=== PATIENT | female | born 1935 | race Caucasian/White ===

== ENCOUNTER 2016-11-06 12:57 | Inpatient (IN) ==
--- NOTE | 2016-11-06 14:31 | Internal Med History&Physical ---
Date of Encounter: 11/06/16 Time of Encounter: 14:29 Assessment and Plan (1) Closed right hip fracture Current visit: No Status: Acute Patient is here for rehabilitation after a mechanical fall with right hip fracture ORIF Qualifiers: Encounter type: initial encounter Qualified Code(s): S72.001A - Fracture of unspecified part of neck of right femur, initial encounter for closed fracture (2) Diabetes mellitus Current visit: No Status: Acute We will follow blood sugars. Qualifiers: Diabetes mellitus type: type 2 Diabetes mellitus complication status: without complication Diabetes mellitus [facility] insulin use: without petroleum terminal plant operator use Qualified Code(s): E11.9 - Type 2 diabetes mellitus without complications Internal Medicine - H&P: HPI Chief complaint: s/p orif hip fx Admitted From: Hospital to Hospital Transfer Plans for Post Hospital Care: Home History of present illness: Ms. Banda is a 81 year old female Past Med Surg Social Fam HX - Past Medical History Medical history: atrial fibrillation, diabetes Psychiatric history: no psych history - Past Surgical History Surgical History: pacemaker - Social History Smoking Status: Smoker, status unknown Smokeless Tobacco Status: No Alcohol use: none Drug use: none Internal Medicine - H&P: Meds Alendronate Sodium [Fosamax] 70 mg PO QWEEK 10/31/16 [History] Amitriptyline [Elavil] 25 mg PO DAILY 10/31/16 [History] Ca/D3/Mag#11/Zinc/Bingo Caller/Manish/Bor [Caltrate 600+D Plus Tablet] 1 each PO BID [History] Furosemide [Lasix] 40 mg PO BID 10/31/16 [History] Gemfibrozil [Lopid] 600 mg PO BID 10/31/16 [History] GlipiZIDE [Glucotrol Xl] 2.5 mg PO DAILY 10/31/16 [History] Metoprolol XL (24 HR) Succ [Toprol Xl] 50 mg PO BID 10/31/16 [History] Potassium Citrate [Urocit-K] 5 meq PO DAILY 10/31/16 [History] Simvastatin [Zocor] 20 mg PO DAILY 10/31/16 [History] Warfarin [Coumadin] 2 mg PO DAILY 10/31/16 [History] Docusate [Colace] 100 mg PO DAILY #30 capsule 01/16/17 [Rx] Allergies No Known Allergies Allergy (Verified 10/31/16 12:26) All Systems PM: A 10-system review of systems was performed and is negative for pertinent findings except as documented above in the HPI. - Head Head exam: Present: atraumatic, normal inspection, normocephalic - Neck Neck exam general surgery: Present: supple, trachea midline. Absent: lymphadenopathy - Respiratory Respiratory exam: Present: CTAB. Absent: accessory muscle use, rales, rhonchi, wheezes - Cardiovascular Cardiovascular exam: Present: RRR, +S1, +S2. Absent: diastolic murmur, gallop, rubs, systolic murmur - GI/Abdominal GI/Abdominal exam: Present: normal bowel sounds, soft, no peritoneal signs. Absent: distended, tenderness Additional comments: Patient has a new scar from a pacemaker insertion. This was a redo of her original pacemaker Internal Med - H&P Results - Labs Labs: Lab results are pending
[2016-11-06] MEDS: (Alendronate Sodium [Fosamax] 70 MG) PO SCH (15:26)
[2016-11-06] MEDS ORDERED: *HR* Warfarin 2 MG TABLET PO SCH (18:00)
[2016-11-06] MEDS: *HR* Warfarin 3 MG TABLET PO SCH (18:55)
[2016-11-06] MEDS: (Ca/D3/Mag#11/Zinc/Cop/Mang/Bor [Caltrate 600+D Plus PO SCH (20:39)
[2016-11-06] MEDS: Furosemide 40 MG TABLET PO SCH (20:39)
[2016-11-06] MEDS: Metoprolol XL (24 HR) Succ 50 MG TAB.ER.24H PO SCH (20:40)
[2016-11-06] MEDS: Ibuprofen 800 MG TABLET PO PRN (20:40)
[2016-11-07] MEDS: *HR* OxyCODONE Immed Rel 5 MG TABLET PO PRN ×2 (01:45→20:56)
[2016-11-07 05:58] LABS: Basophils % 0.7 %; Eosinophils # 0.1 K/mcL (0.0-0.6); Hematocrit 25.7 % (35.3-44.9); Hemoglobin 8.7 g/dL (11.5-15.4); Immature Granulocytes % 2.9 % (0-4); Lymphocytes % 16.5 %; Mean Corpuscular HGB Conc 33.9 g/dL (31.6-35.5); Mean Corpuscular Volume 88.6 fL (83.0-100.0); Mean Platelet Volume 8.9 fL (9.4-12.4); Monocytes # 0.6 K/mcL (0.0-1.3); Nucleated Red Blood Cells 0.5 /100 WBC (0); Platelet Count 263 K/mcL (140-400); Red Cell Distribution Width 14.6 % (11.5-14.5); Segmented Neutrophils % 67.9 %
[2016-11-07 05:59] LABS: INR 2.3
[2016-11-07 06:02] LABS: Activated Partial Thrombo Time 42.8 Seconds (26.0-36.0)
[2016-11-07 06:08] LABS: BUN/Creatinine Ratio 53 (6-26); Blood Urea Nitrogen 43 mg/dL (7-20); Carbon Dioxide 25 mEq/L (19-29); Chloride 97 mEq/L (98-109); Glucose 219 mg/dL (70-99); Osmolality,Calculated 294 (280-300); Potassium 4.3 mEq/L (3.5-4.5); Sodium 133 mEq/L (136-145); eGFR For African Americans > 60 (> 60); eGFR For Non-African Americans > 60 (> 60)
[2016-11-07] MEDS: Ibuprofen 800 MG TABLET PO PRN ×2 (08:52→17:57)
[2016-11-07] MEDS: Furosemide 40 MG TABLET PO SCH ×2 (08:53→20:52)
[2016-11-07] MEDS: Metoprolol XL (24 HR) Succ 50 MG TAB.ER.24H PO SCH ×2 (08:53→20:52)
[2016-11-07] MEDS: (Ca/D3/Mag#11/Zinc/Cop/Mang/Bor [Caltrate 600+D Plus PO SCH ×2 (08:53→21:00)
[2016-11-07] MEDS: POTASSIUM CITRATE 5 MEQ PO SCH (08:54)
[2016-11-07] MEDS ORDERED: *HR* Warfarin 2 MG TABLET PO SCH (09:00)
[2016-11-07] MEDS ORDERED: *HR* GlipiZIDE XL (24 HR) 2.5 MG TABLET PO SCH (09:00)
[2016-11-07] MEDS ORDERED: Dextrose Gel 15 GM PO PRN ×2 (11:52)
[2016-11-07] MEDS ORDERED: D5% in Water 1,000 ML IV PRN (11:52)
[2016-11-07] MEDS ORDERED: *HR* Dextrose 50 % in Water (Syg) 50 ML SYRINGE IVP PRN (11:52)
--- NOTE | 2016-11-07 13:49 | Internal Med Progress Note ---
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 Urbina color is good and she is tolerating everything well and is doing very well. She is a little weak and complains of easy fatigue - Constitutional Vitals: Temp Pulse Resp BP Pulse Ox 97.1 F L 75 18 136/76 96 11/07/16 06:59 11/07/16 06:59 11/07/16 06:59 11/07/16 06:59 11/07/16 06:59 - Head Head exam: Present: atraumatic, normal inspection, normocephalic - Neck Neck exam general surgery: Present: supple, trachea midline. Absent: lymphadenopathy - Respiratory Respiratory exam: Present: CTAB. Absent: accessory muscle use, rales, rhonchi, wheezes - Cardiovascular Cardiovascular exam: Present: RRR, +S1, +S2. Absent: diastolic murmur, gallop, rubs, systolic murmur - GI/Abdominal GI/Abdominal exam: Present: normal bowel sounds, soft, no peritoneal signs. Absent: distended, tenderness Internal Medicine: Result - Labs CBC & Chem 7: 11/07/16 05:50 11/07/16 05:50 Labs: Short CBC 11/07/16 Range/Units 05:50 WBC 5.9 (4.3-11.1) K/mcL Hgb 8.7 L (11.5-15.4) g/dL Hct 25.7 L (35.3-44.9) % Plt Count 263 (140-400) K/mcL Neutrophils # 4.0 (1.6-8.9) K/mcL BMP 11/07/16 05:50 Sodium 133 L Potassium 4.3 Chloride 97 L Carbon Dioxide 25 BUN 43 H Creatinine 0.81 Glucose 219 H Calcium 9.0 Labs look stable - ABG Interpretation ABG results: PT/INR, D-dimer PT 25.0 Seconds (9.4-12.1) H 11/07/16 05:50 - Impressions Impressions Hip X-Ray 11/07/16 08:47 IMPRESSION: Status post ORIF of the intertrochanteric right hip. No evidence of hardware complication. D/ / Carmelo Garduno MD / Carmelo Garduno MD Interpreting Provider: Carmelo Garduno MD Consult Discharge Plan - Plan Instructions: Pacemaker (DC), Open Reduction and Internal Fixation of a Hip Fracture (DC), Diabetes Mellitus Type 2 in Adults (DC) Referrals: Jasmin Renee PAC [Physician Volumetric Weigher] - 11/10/16 10:45 am (Another appt on 11-15-16 at 1130 ) Kevin Terrazas Jr, MD [Primary Care Provider] - 11/15/16 9:45 am
[2016-11-07] MEDS: *HR* Warfarin 3 MG TABLET PO SCH (17:55)
[2016-11-07] MEDS: Insulin LISPRO 300 UNITS/3 ML VIAL SQ SCH (17:55)
[2016-11-07] MEDS ORDERED: Insulin LISPRO 300 UNITS/3 ML VIAL SQ SCH (21:00)
[2016-11-08 05:21] LABS: Prothrombin Time 33.7 Seconds (9.4-12.1)
[2016-11-08] MEDS: Insulin LISPRO 300 UNITS/3 ML VIAL SQ SCH ×4 (09:54→21:03)
[2016-11-08] MEDS: Ibuprofen 800 MG TABLET PO PRN ×2 (11:35→21:08)
[2016-11-08] MEDS: Metoprolol XL (24 HR) Succ 50 MG TAB.ER.24H PO SCH ×2 (11:35→21:03)
[2016-11-08] MEDS: Furosemide 40 MG TABLET PO SCH ×2 (11:35→21:02)
[2016-11-08] MEDS: (Ca/D3/Mag#11/Zinc/Cop/Mang/Bor [Caltrate 600+D Plus PO SCH ×2 (11:36→21:17)
[2016-11-08] MEDS: *HR* GlipiZIDE XL (24 HR) 2.5 MG TABLET PO SCH (11:36)
[2016-11-08] MEDS: POTASSIUM CITRATE 5 MEQ PO SCH (11:36)
--- NOTE | 2016-11-08 14:03 | Physical Med Progress Note ---
Date of Encounter: 11/08/16 Time of Encounter: 13:49 Physical Medicine-PN: Subj Interval history: PM&R PCC Note Patient admitted s/p right hip fracture. Patient is suffering from anxiety. TR has been working on relaxation techniques. Plan to give patient a small amount of ativan at hs. Her pain is well controlled with tylenol and ibuprofen. Patient ambulates with CGA, needs cues to maintain PWB status. She is CGA/Elaine for mat transfers. She is able to ambulate to therapy from her room. Patient is having issues with new learning-she has some pre-existing dementia. Patient has 1 step to enter home-will work on steps prior to discharge. Plan for discharge to home 11/14/16. - Constitutional Vitals: Vital Signs Temp Pulse Resp BP Pulse Ox 11/08/16 07:28 98.1 F 89 16 144/55 99 11/07/16 19:15 97.9 F 85 16 138/61 100 Intake and Output 11/07/16 11/08/16 11/08/16 23:59 07:59 15:59 Intake Total 400 / 400 360 / 360 Balance 400 / 400 360 / 360 Intake: Oral 400 / 400 360 / 360 Other: Meal Lunch Percent of Meal Consumed 55% Stool Size Small Small Stool Consistency soft formed Stool Characteristics Normal for Patient Stool Color Brown Brown # Voids 1 1 # Bowel Movements 1 1 # Bowel Movement Diapers 1 Blood Glucose* 197 263 Physical Medicine-PN: Obj Data - Labs CBC & Chem 7: 11/07/16 05:50 11/07/16 05:50 Labs: Laboratory Results - last 24 hr 11/07/16 11/07/16 11/07/16 17:00 18:49 20:34 PT INR POC Glucose 354 H 360 H 197 H 11/08/16 11/08/16 11/08/16 05:10 07:26 11:36 PT 33.7 H INR 3.0 POC Glucose 141 H 263 H - ABG Interpretation ABG results: PT/INR, D-dimer PT 33.7 Seconds (9.4-12.1) H 11/08/16 05:10 Consult Discharge Plan - Plan Instructions: Pacemaker (DC), Open Reduction and Internal Fixation of a Hip Fracture (DC), Diabetes Mellitus Type 2 in Adults (DC) Referrals: Jasmin Renee, PAC [Physician Nail Kegger] - 11/10/16 10:45 am (Another appt on 11-15-16 at 1130 ) Kevin Terrazas Jr, MD [Primary Care Provider] - 11/15/16 9:45 am
[2016-11-08] MEDS ORDERED: Bumetanide 1 MG TABLET PO ONE (14:29)
--- NOTE | 2016-11-08 14:42 | Internal Med Progress Note ---
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 hWite's color is good and she is tolerating everything well and is doing very well. She is a little weak and complains of easy fatigue. 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 He gets very anxious and has panic attacks strange environments. Her rock so is her 's long sees around she stays calm. I have added a little teeny bit of Ativan at at bedtime to see if she will rest at any time during the day that she gets panic attack. - Constitutional Vitals: Temp Pulse Resp BP Pulse Ox 98.1 F 89 16 144/55 99 11/08/16 07:28 11/08/16 07:28 11/08/16 07:28 11/08/16 07:28 11/08/16 07:28 - Head Head exam: Present: atraumatic, normal inspection, normocephalic - Neck Neck exam general surgery: Present: supple, trachea midline. Absent: lymphadenopathy - Respiratory Respiratory exam: Present: CTAB. Absent: accessory muscle use, rales, rhonchi, wheezes - Cardiovascular Cardiovascular exam: Present: RRR, +S1, +S2. Absent: diastolic murmur, gallop, rubs, systolic murmur - Expanded Lower Extremities Exam Lower Leg exam: Present: swelling (Patient has 2-3 mm pretibial edema so I am adding some Bumex to her Lasix.) Internal Medicine: Result - Labs CBC & Chem 7: 11/07/16 05:50 11/07/16 05:50 - ABG Interpretation ABG results: PT/INR, D-dimer PT 33.7 Seconds (9.4-12.1) H 11/08/16 05:10 Consult Discharge Plan - Plan Instructions: Pacemaker (DC), Open Reduction and Internal Fixation of a Hip Fracture (DC), Diabetes Mellitus Type 2 in Adults (DC) Referrals: Jasmin Renee PAC [Physician Pie Baker] - 11/10/16 10:45 am (Another appt on 11-15-16 at 1130 ) Kevin Terrazas Jr, MD [Primary Care Provider] - 11/15/16 9:45 am
[2016-11-08] MEDS ORDERED: *HR* LORazepam 0.5 MG TABLET PO PRN (14:47)
[2016-11-08] MEDS ORDERED: *HR* LORazepam 0.5 MG TABLET PO SCH (15:00)
[2016-11-08] MEDS: *HR* Warfarin 2 MG TABLET PO SCH (17:54)
[2016-11-08] MEDS: *HR* OxyCODONE Immed Rel 5 MG TABLET PO PRN ×2 (17:54→23:40)
[2016-11-08] MEDS: *HR* LORazepam 0.5 MG TABLET PO SCH (21:01)
[2016-11-09 05:38] LABS: INR 2.3; Prothrombin Time 25.8 Seconds (9.4-12.1)
[2016-11-09] MEDS: *HR* GlipiZIDE XL (24 HR) 2.5 MG TABLET PO SCH (09:09)
[2016-11-09] MEDS: POTASSIUM CITRATE 5 MEQ PO SCH (09:09)
[2016-11-09] MEDS: Furosemide 40 MG TABLET PO SCH ×2 (09:09→21:37)
[2016-11-09] MEDS: Metoprolol XL (24 HR) Succ 50 MG TAB.ER.24H PO SCH ×2 (09:09→21:38)
[2016-11-09] MEDS: (Ca/D3/Mag#11/Zinc/Cop/Mang/Bor [Caltrate 600+D Plus PO SCH ×2 (09:10→21:38)
[2016-11-09] MEDS: Insulin LISPRO 300 UNITS/3 ML VIAL SQ SCH ×4 (09:11→21:40)
[2016-11-09] MEDS: Ibuprofen 800 MG TABLET PO PRN ×3 (09:18→21:40)
--- NOTE | 2016-11-09 13:23 | Internal Med Progress Note ---
Date of Encounter: 11/09/16 Time of Encounter: 13:21 - Assessment and plan (1) Closed right hip fracture Current Visit: Yes Status: Acute Assessment and plan: Patient's working with PT OT and TR. Her elevating her legs between sessions. Qualifiers: Encounter type: initial encounter Qualified Code(s): S72.001A - Fracture of unspecified part of neck of right femur, initial encounter for closed fracture (2) Diabetes mellitus Current Visit: No Status: Acute Assessment and plan: Blood sugar still little high yesterday and made adjustments in her medication. 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 White's color is good and she is tolerating everything well and is doing very well. She is a little weak and complains of easy fatigue. 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 He gets very anxious and has panic attacks strange environments. Her rock so is her 's long sees around she stays calm. I have added a little teeny bit of Ativan at at bedtime to see if she will rest at any time during the day that she gets panic attack.lower ext edema, will add bumex. - Constitutional Vitals: Temp Pulse Resp BP Pulse Ox 98.6 F 84 18 127/54 97 11/09/16 07:51 11/09/16 07:51 11/09/16 07:51 11/09/16 07:51 11/09/16 07:51 - Head Head exam: Present: atraumatic, normal inspection, normocephalic - Respiratory Respiratory exam: Present: CTAB. Absent: accessory muscle use, rales, rhonchi, wheezes - Cardiovascular Cardiovascular exam: Present: RRR, +S1, +S2. Absent: diastolic murmur, gallop, rubs, systolic murmur - GI/Abdominal GI/Abdominal exam: Present: normal bowel sounds, soft, no peritoneal signs. Absent: distended, tenderness Internal Medicine: Result - Labs CBC & Chem 7: 11/07/16 05:50 11/07/16 05:50 Labs: Will follow BUN and creatinine - ABG Interpretation ABG results: PT/INR, D-dimer PT 25.8 Seconds (9.4-12.1) H 11/09/16 05:05 Consult Discharge Plan - Plan Instructions: Pacemaker (DC), Open Reduction and Internal Fixation of a Hip Fracture (DC), Diabetes Mellitus Type 2 in Adults (DC) Referrals: Jasmin Renee PAC [Physician Leather Coater] - 11/10/16 10:45 am (Another appt on 11-15-16 at 1130 ) Kevin Terrazas Jr, MD [Primary Care Provider] - 11/15/16 9:45 am
[2016-11-09] MEDS: Bumetanide 1 MG TABLET PO SCH ×2 (15:29→18:12)
[2016-11-09] MEDS ORDERED: Bumetanide 1 MG TABLET PO SCH (17:00)
[2016-11-09] MEDS: *HR* Warfarin 2 MG TABLET PO SCH (18:45)
[2016-11-09] MEDS: *HR* LORazepam 0.5 MG TABLET PO SCH (21:37)
[2016-11-10 05:48] LABS: Prothrombin Time 22.2 Seconds (9.4-12.1)
[2016-11-10] MEDS: Ibuprofen 800 MG TABLET PO PRN ×3 (05:54→20:30)
[2016-11-10] MEDS: POTASSIUM CITRATE 5 MEQ PO SCH (08:51)
[2016-11-10] MEDS: Metoprolol XL (24 HR) Succ 50 MG TAB.ER.24H PO SCH ×2 (08:51→20:29)
[2016-11-10] MEDS: Furosemide 40 MG TABLET PO SCH ×2 (08:51→20:27)
[2016-11-10] MEDS: Bumetanide 1 MG TABLET PO SCH ×2 (08:51→17:12)
[2016-11-10] MEDS: *HR* GlipiZIDE XL (24 HR) 2.5 MG TABLET PO SCH (08:51)
[2016-11-10] MEDS: Insulin LISPRO 300 UNITS/3 ML VIAL SQ SCH ×4 (08:51→20:38)
[2016-11-10] MEDS: (Ca/D3/Mag#11/Zinc/Cop/Mang/Bor [Caltrate 600+D Plus PO SCH ×2 (08:52→20:38)
--- NOTE | 2016-11-10 14:23 | Internal Med Progress Note ---
Date of Encounter: 11/10/16 Time of Encounter: 14:21 - Assessment and plan (1) Closed right hip fracture Current Visit: Yes Status: Acute Assessment and plan: Patient had mechanical fall with hip fracture which was fixed she is now here for rehabilitation. Qualifiers: Encounter type: initial encounter Qualified Code(s): S72.001A - Fracture of unspecified part of neck of right femur, initial encounter for closed fracture (2) Diabetes mellitus Current Visit: No Status: Acute Assessment and plan: Following blood sugars. Some are little hot she is little bit labile. Qualifiers: Diabetes mellitus type: type 2 Diabetes mellitus complication status: without complication Diabetes mellitus halfway insulin use: without halfway use Qualified Code(s): E11.9 - Type 2 diabetes mellitus without complications - Time Spent With Patient less than 15 minutes - Subjective Interval history: Ms. White is settled down to the routine. Working with PT OT and TR. - Constitutional Vitals: Temp Pulse Resp BP Pulse Ox 98.6 F 82 18 137/71 99 11/10/16 07:36 11/10/16 07:36 11/10/16 07:36 11/10/16 07:36 11/10/16 07:36 - Head Head exam: Present: atraumatic, normal inspection, normocephalic - Respiratory Respiratory exam: Present: CTAB. Absent: accessory muscle use, rales, rhonchi, wheezes - Cardiovascular Cardiovascular exam: Present: RRR, +S1, +S2. Absent: diastolic murmur, gallop, rubs, systolic murmur - GI/Abdominal GI/Abdominal exam: Present: normal bowel sounds, soft, no peritoneal signs. Absent: distended, tenderness Internal Medicine: Result - Labs CBC & Chem 7: 11/07/16 05:50 11/07/16 05:50 Labs: Labs look stable - ABG Interpretation ABG results: PT/INR, D-dimer PT 22.2 Seconds (9.4-12.1) H 11/10/16 05:35 Consult Discharge Plan - Plan Instructions: Pacemaker (DC), Open Reduction and Internal Fixation of a Hip Fracture (DC), Diabetes Mellitus Type 2 in Adults (DC) Referrals: Jasmin Renee, PAC [Physician Knot Bumper] - 11/10/16 10:45 am (Another appt on 11-15-16 at 1130 ) Kevin Terrazas Jr, MD [Primary Care Provider] - 11/15/16 9:45 am
[2016-11-10] MEDS: *HR* Warfarin 2.5 MG TABLET PO SCH (17:12)
[2016-11-10] MEDS: *HR* LORazepam 0.5 MG TABLET PO SCH (20:27)
[2016-11-11 06:07] LABS: INR 1.8; Prothrombin Time 20.1 Seconds (9.4-12.1)
[2016-11-11] MEDS: Insulin LISPRO 300 UNITS/3 ML VIAL SQ SCH ×4 (08:22→21:58)
[2016-11-11] MEDS: Bumetanide 1 MG TABLET PO SCH ×2 (08:25→17:26)
[2016-11-11] MEDS: Metoprolol XL (24 HR) Succ 50 MG TAB.ER.24H PO SCH ×2 (08:25→21:36)
[2016-11-11] MEDS: (Ca/D3/Mag#11/Zinc/Cop/Mang/Bor [Caltrate 600+D Plus PO SCH ×2 (08:26→21:38)
[2016-11-11] MEDS: Furosemide 40 MG TABLET PO SCH ×2 (08:26→21:36)
[2016-11-11] MEDS: *HR* GlipiZIDE XL (24 HR) 2.5 MG TABLET PO SCH (08:26)
[2016-11-11] MEDS: Ibuprofen 800 MG TABLET PO PRN ×2 (08:26→17:26)
[2016-11-11] MEDS: POTASSIUM CITRATE 5 MEQ PO SCH (08:28)
[2016-11-11] MEDS: *HR* OxyCODONE Immed Rel 5 MG TABLET PO PRN ×2 (11:30→21:36)
[2016-11-11] MEDS: *HR* Warfarin 2.5 MG TABLET PO SCH (17:27)
[2016-11-11] MEDS: *HR* LORazepam 0.5 MG TABLET PO SCH (21:37)
--- NOTE | 2016-11-11 23:20 | Internal Med Progress Note ---
Date of Encounter: 11/11/16 Time of Encounter: 23:19 - Assessment and plan (1) Closed right hip fracture Current Visit: Yes Status: Acute Assessment and plan: Patient had mechanical fall with hip fracture which was fixed she is now here for rehabilitation PT OT working on improving her balance, transfer and gait.. Qualifiers: Encounter type: initial encounter Qualified Code(s): S72.001A - Fracture of unspecified part of neck of right femur, initial encounter for closed fracture (2) Edema extremities Current Visit: Yes Status: Chronic Assessment and plan: Chronic lower leg edema. Likely dependent plus poor venous circulation - Time Spent With Patient less than 15 minutes - Subjective Interval history: Complains of constipation. Complains of postop pain. No shortness of breath. No chest pain. - Constitutional Vitals: Temp Pulse Resp BP Pulse Ox 97.5 F L 96 19 139/65 93 L 11/11/16 19:00 11/11/16 19:00 11/11/16 19:00 11/11/16 19:00 11/11/16 19:00 General appearance: Present: A&O X 3, pleasant, no acute distress - Respiratory Respiratory exam: Present: CTAB. Absent: accessory muscle use, rales, rhonchi, wheezes - Cardiovascular Cardiovascular exam: Present: RRR, +S1, +S2. Absent: diastolic murmur, gallop, rubs, systolic murmur - GI/Abdominal GI/Abdominal exam: Present: normal bowel sounds, soft, no peritoneal signs. Absent: distended, tenderness - Extremities Exam Extremities exam: Present: pedal edema. Absent: calf tenderness - Neurological Exam Neurological exam: Present: CN II-XII intact, oriented X3, no focal deficits. Absent: pronater drift, facial droop, speech deficit Internal Medicine: Result - Labs CBC & Chem 7: 11/07/16 05:50 11/07/16 05:50 - ABG Interpretation ABG results: PT/INR, D-dimer PT 20.1 Seconds (9.4-12.1) H 11/11/16 05:35 Consult Discharge Plan - Plan Instructions: Pacemaker (DC), Open Reduction and Internal Fixation of a Hip Fracture (DC), Diabetes Mellitus Type 2 in Adults (DC) Referrals: Jasmin Renee, PAC [Physician Marine Surveyor] - 11/10/16 10:45 am (Another appt on 11-15-16 at 1130 ) Kevin Terrazas Jr, MD [Primary Care Provider] - 11/15/16 9:45 am
[2016-11-12 05:32] LABS: INR 1.7; Prothrombin Time 19.1 Seconds (9.4-12.1)
[2016-11-12] MEDS: Insulin LISPRO 300 UNITS/3 ML VIAL SQ SCH ×4 (07:28→21:19)
[2016-11-12] MEDS: POTASSIUM CITRATE 5 MEQ PO SCH (08:34)
[2016-11-12] MEDS: *HR* GlipiZIDE XL (24 HR) 2.5 MG TABLET PO SCH (08:34)
[2016-11-12] MEDS: Bumetanide 1 MG TABLET PO SCH ×2 (08:34→17:33)
[2016-11-12] MEDS: Metoprolol XL (24 HR) Succ 50 MG TAB.ER.24H PO SCH ×2 (08:34→21:19)
[2016-11-12] MEDS: Furosemide 40 MG TABLET PO SCH ×2 (08:34→21:19)
[2016-11-12] MEDS: (Ca/D3/Mag#11/Zinc/Cop/Mang/Bor [Caltrate 600+D Plus PO SCH ×2 (08:35→21:24)
[2016-11-12] MEDS: Ibuprofen 800 MG TABLET PO PRN (08:42)
--- NOTE | 2016-11-12 08:43 | Internal Med Progress Note ---
Date of Encounter: 11/12/16 Time of Encounter: 08:41 - Assessment and plan (1) Closed right hip fracture Current Visit: Yes Status: Acute Assessment and plan: Patient had mechanical fall with hip fracture which was fixed she is now here for rehabilitation PT OT working on improving her balance, transfer and gait.. Qualifiers: Encounter type: initial encounter Qualified Code(s): S72.001A - Fracture of unspecified part of neck of right femur, initial encounter for closed fracture (2) Edema extremities Current Visit: Yes Status: Chronic Assessment and plan: Chronic lower leg edema. Likely dependent plus poor venous circulation - Time Spent With Patient less than 15 minutes - Subjective Interval history: Constipation resolved. Feeling better today. Mild post op pain.. Complains of postop pain. No shortness of breath. No chest pain. - Constitutional Vitals: Temp Pulse Resp BP Pulse Ox 98.4 F 78 16 108/58 93 L 11/12/16 07:00 11/12/16 07:00 11/12/16 07:00 11/12/16 07:00 11/12/16 07:00 General appearance: Present: A&O X 3, pleasant, no acute distress - Respiratory Respiratory exam: Present: CTAB. Absent: accessory muscle use, rales, rhonchi, wheezes - Cardiovascular Cardiovascular exam: Present: RRR, +S1, +S2. Absent: diastolic murmur, gallop, rubs, systolic murmur - GI/Abdominal GI/Abdominal exam: Present: normal bowel sounds, soft, no peritoneal signs. Absent: distended, tenderness - Expanded Lower Extremities Exam Hip exam: Present: tenderness Internal Medicine: Result - Labs CBC & Chem 7: 11/07/16 05:50 11/07/16 05:50 - ABG Interpretation ABG results: PT/INR, D-dimer PT 19.1 Seconds (9.4-12.1) H 11/12/16 05:26 Consult Discharge Plan - Plan Instructions: Pacemaker (DC), Open Reduction and Internal Fixation of a Hip Fracture (DC), Diabetes Mellitus Type 2 in Adults (DC) Referrals: Jasmin Renee PAC [Physician Online Banking Specialist] - 11/10/16 10:45 am (Another appt on 11-15-16 at 1130 ) Kevin Terrazas Jr, MD [Primary Care Provider] - 11/15/16 9:45 am
[2016-11-12] MEDS: *HR* Warfarin 4 MG TABLET PO SCH (17:33)
[2016-11-12] MEDS: *HR* OxyCODONE Immed Rel 5 MG TABLET PO PRN (21:20)
[2016-11-12] MEDS: *HR* LORazepam 0.5 MG TABLET PO SCH (21:20)
[2016-11-13] MEDS: *HR* OxyCODONE Immed Rel 5 MG TABLET PO PRN ×2 (05:28→21:07)
[2016-11-13 05:31] LABS: INR 1.7; Prothrombin Time 18.8 Seconds (9.4-12.1)
[2016-11-13 05:33] LABS: Basophils # 0.1 K/mcL (0.0-0.2); Eosinophils # 0.1 K/mcL (0.0-0.6); Eosinophils % 2.2 %; Hematocrit 28.7 % (35.3-44.9); Hemoglobin 9.4 g/dL (11.5-15.4); Lymphocytes # 1.2 K/mcL (0.6-4.6); Lymphocytes % 23.5 %; Mean Corpuscular HGB Conc 32.8 g/dL (31.6-35.5); Mean Corpuscular Volume 91.7 fL (83.0-100.0); Mean Platelet Volume 8.4 fL (9.4-12.4); Monocytes # 0.7 K/mcL (0.0-1.3); Monocytes % 13.2 %; Neutrophils # 2.9 K/mcL (1.6-8.9); Platelet Count 335 K/mcL (140-400); Red Blood Count 3.13 M/mcL (3.82-4.97); Red Cell Distribution Width 16.6 % (11.5-14.5); Segmented Neutrophils % 58.1 %
[2016-11-13 05:34] LABS: Activated Partial Thrombo Time 40.1 Seconds (26.0-36.0)
[2016-11-13 05:42] LABS: BUN/Creatinine Ratio 62 (6-26); Blood Urea Nitrogen 50 mg/dL (7-20); Calcium 8.5 mg/dL (8.6-10.8); Carbon Dioxide 29 mEq/L (19-29); Chloride 99 mEq/L (98-109); Glucose 101 mg/dL (70-99); Osmolality,Calculated 303 (280-300); Potassium 3.6 mEq/L (3.5-4.5); Sodium 140 mEq/L (136-145); eGFR For African Americans > 60 (> 60); eGFR For Non-African Americans > 60 (> 60)
[2016-11-13] MEDS: Insulin LISPRO 300 UNITS/3 ML VIAL SQ SCH ×4 (07:40→21:08)
[2016-11-13] MEDS: Furosemide 40 MG TABLET PO SCH ×2 (08:19→21:07)
[2016-11-13] MEDS: Bumetanide 1 MG TABLET PO SCH ×2 (08:20→17:05)
[2016-11-13] MEDS: Ibuprofen 800 MG TABLET PO PRN (08:20)
[2016-11-13] MEDS: *HR* GlipiZIDE XL (24 HR) 2.5 MG TABLET PO SCH (08:20)
[2016-11-13] MEDS: POTASSIUM CITRATE 5 MEQ PO SCH (08:20)
[2016-11-13] MEDS: Metoprolol XL (24 HR) Succ 50 MG TAB.ER.24H PO SCH ×2 (08:20→21:08)
[2016-11-13] MEDS: (Ca/D3/Mag#11/Zinc/Cop/Mang/Bor [Caltrate 600+D Plus PO SCH ×2 (08:20→21:15)
--- NOTE | 2016-11-13 13:40 | Internal Med Progress Note ---
Date of Encounter: 11/13/16 Time of Encounter: 11:00 - Assessment and plan (1) Closed right hip fracture Current Visit: Yes Status: Acute Assessment and plan: She is status post ORIF. Qualifiers: Encounter type: initial encounter Qualified Code(s): S72.001A - Fracture of unspecified part of neck of right femur, initial encounter for closed fracture (2) Diabetes mellitus Current Visit: No Status: Acute Qualifiers: Diabetes mellitus type: type 2 Diabetes mellitus complication status: without complication Diabetes mellitus [facility] insulin use: without [facility] use Qualified Code(s): E11.9 - Type 2 diabetes mellitus without complications - Time Spent With Patient less than 15 minutes - Subjective Interval history: Patient doing well will discharge tomorrow with her . - Constitutional Vitals: Temp Pulse Resp BP Pulse Ox 97.8 F 73 18 128/62 95 11/13/16 07:31 11/13/16 07:31 11/13/16 07:31 11/13/16 07:31 11/13/16 07:31 General appearance: Present: A&O X 3, pleasant, no acute distress - Head Head exam: Present: atraumatic, normal inspection, normocephalic - Neck Neck exam general surgery: Present: supple, trachea midline. Absent: lymphadenopathy - Respiratory Respiratory exam: Present: CTAB. Absent: accessory muscle use, rales, rhonchi, wheezes - Cardiovascular Cardiovascular exam: Present: RRR, +S1, +S2. Absent: diastolic murmur, gallop, rubs, systolic murmur - GI/Abdominal GI/Abdominal exam: Present: normal bowel sounds, soft, no peritoneal signs. Absent: distended, tenderness Internal Medicine: Result - Labs CBC & Chem 7: 11/13/16 05:20 11/13/16 05:20 Labs: Short CBC 11/13/16 Range/Units 05:20 WBC 4.9 (4.3-11.1) K/mcL Hgb 9.4 L (11.5-15.4) g/dL Hct 28.7 L (35.3-44.9) % Plt Count 335 (140-400) K/mcL Neutrophils # 2.9 (1.6-8.9) K/mcL BMP Lab is stable but I am little concerned about her BUN. Encourage her to take in more by mouth fluids 11/13/16 05:20 Sodium 140 Potassium 3.6 Chloride 99 Carbon Dioxide 29 BUN 50 H Creatinine 0.81 Glucose 101 H Calcium 8.5 L - ABG Interpretation ABG results: PT/INR, D-dimer PT 18.8 Seconds (9.4-12.1) H 11/13/16 05:20 Consult Discharge Plan - Plan Instructions: Pacemaker (DC), Open Reduction and Internal Fixation of a Hip Fracture (DC), Diabetes Mellitus Type 2 in Adults (DC) Referrals: Jasmin Renee, GILLIAN [Physician Lining Cementer] - 11/10/16 10:45 am (Another appt on 11-15-16 at 1130 ) Kevin Terrazas Jr, MD [Primary Care Provider] - 11/15/16 9:45 am
[2016-11-13] MEDS: (Alendronate Sodium [Fosamax] 70 MG) PO SCH (14:05)
--- NOTE | 2016-11-13 14:41 | Discharge Summary ---
Date of Encounter: 11/14/16 Time of Encounter: 14:39 - Discharge Diagnosis (1) Closed right hip fracture Priority: Primary Status: Acute Comments: Patient has done well . She PTOT and TR notes. Qualifiers: Encounter type: initial encounter Qualified Code(s): S72.001A - Fracture of unspecified part of neck of right femur, initial encounter for closed fracture (2) Diabetes mellitus Priority: Secondary Status: Acute Comments: Sugars been pretty good she has an occasional greater than 200 Qualifiers: Diabetes mellitus type: type 2 Diabetes mellitus complication status: without complication Diabetes mellitus alf insulin use: without assistant terminal manager use Qualified Code(s): E11.9 - Type 2 diabetes mellitus without complications - Discharge Medications Home Medications: Alendronate Sodium [Fosamax] 70 mg PO QWEEK 10/31/16 [History] Amitriptyline [Elavil] 25 mg PO DAILY 10/31/16 [History] Ca/D3/Mag#11/Zinc/Software Tester/Manish/Bor [Caltrate 600+D Plus Tablet] 1 each PO BID [History] Furosemide [Lasix] 40 mg PO BID 10/31/16 [History] Gemfibrozil [Lopid] 600 mg PO BID 10/31/16 [History] GlipiZIDE [Glucotrol Xl] 2.5 mg PO DAILY 10/31/16 [History] Metoprolol XL (24 HR) Succ [Toprol Xl] 50 mg PO BID 10/31/16 [History] Potassium Citrate [Urocit-K] 5 meq PO DAILY 10/31/16 [History] Simvastatin [Zocor] 20 mg PO DAILY 10/31/16 [History] Warfarin [Coumadin] 2 mg PO DAILY 10/31/16 [History] Allergies/Adverse Reactions: Allergies No Known Allergies Allergy (Verified 10/31/16 12:26) Date of admission: 11/06/16 13:09 Primary care physician: Kevin Terrazas Jr, MD Consults: 11/06/16 14:43 Consult to Occupational Therapy [CONS] Routine Comment: Evaluate, develop and implement POC Consult to Physical Therapy [CONS] Routine Comment: Evaluate, develop and implement POC Consult to Recreational Therapy [CONS] Routine Comment: Evaluate, develop and implement POC Discharging clinician: Ajay Wilson Anticipated date of discharge: 11/14/16 - Patient Status Disposition: Home Health Service Condition: Good Overall status at discharge: patient is not back to baseline - Discharge Instructions Instructions: Pacemaker (DC), Open Reduction and Internal Fixation of a Hip Fracture (DC), Diabetes Mellitus Type 2 in Adults (DC) Follow Up With: Jasmin Renee PAC [Physician Operations Advisor] - 11/10/16 10:45 am (Another appt on 11-15-16 at 1130 ) Kevin Terrazas Jr, MD [Primary Care Provider] - 11/15/16 9:45 am - Diet and Activity Activity: ambulate only with your walker Diet: diabetic diet Interval History: Patient was admitted to [facility] from [facility] due to her advanced age and a hip fracture and ORIF as done well Hospital course: Ms. Banda is a 81 year old female Patient came to us from surgery and please see PT OT and TR. She has done well. Be discharged tomorrow in the company of her - Time Spent with Patient Total time spent providing and/or coordinating discharge services: Less than 30 minutes - Constitutional Vitals: Temp Pulse Resp BP Pulse Ox 97.8 F 73 18 128/62 95 11/13/16 07:31 11/13/16 07:31 11/13/16 07:31 11/13/16 07:31 11/13/16 07:31 General appearance: Present: A&O X 3, pleasant, no acute distress - Head Head exam: Present: atraumatic, normal inspection, normocephalic - Neck Neck exam general surgery: Present: supple, trachea midline. Absent: lymphadenopathy - Cardiovascular Cardiovascular exam: Present: RRR, +S1, +S2. Absent: diastolic murmur, gallop, rubs, systolic murmur - GI/Abdominal GI/Abdominal exam: Present: normal bowel sounds, soft, no peritoneal signs. Absent: distended, tenderness
--- NOTE | 2016-11-13 14:44 | Physician Discharge Referral ---
Home Health/Hosp Referral Info Transfer to: Home Health Provider in Charge Post Discharge: PCP - Diagnosis (1) Closed right hip fracture Priority: Primary Status: Acute (2) Diabetes mellitus Priority: Secondary Status: Acute - Respiratory Orders Smoking Cessation: Smoking cessation has been advised. For more information, call the [place] Tobacco Quit Line at 2-681-BSJB-NOW. - Transfer Medications Home Medications: Alendronate Sodium [Fosamax] 70 mg PO QWEEK 10/31/16 [History] Amitriptyline [Elavil] 25 mg PO DAILY 10/31/16 [History] Ca/D3/Mag#11/Zinc/Journalism Instructor/Manish/Bor [Caltrate 600+D Plus Tablet] 1 each PO BID [History] Furosemide [Lasix] 40 mg PO BID 10/31/16 [History] Gemfibrozil [Lopid] 600 mg PO BID 10/31/16 [History] GlipiZIDE [Glucotrol Xl] 2.5 mg PO DAILY 10/31/16 [History] Metoprolol XL (24 HR) Succ [Toprol Xl] 50 mg PO BID 10/31/16 [History] Potassium Citrate [Urocit-K] 5 meq PO DAILY 10/31/16 [History] Simvastatin [Zocor] 20 mg PO DAILY 10/31/16 [History] Warfarin [Coumadin] 2 mg PO DAILY 10/31/16 [History] Allergies/Adverse Reactions: Allergies No Known Allergies Allergy (Verified 10/31/16 12:26) Certification: Further, I certify that my clinical findings support that this patient is homebound (i.e. absences from home require considerable and taxing effort and are for medical reasons or restoration services or infrequently or short duration when for other reasons) because: Homebound Reason: Patient requires assistance of a person or device to safely leave home Attestation: My signature below is to certify that this patient is under my care and that I, or nurse practitioner, or a physician's chef assistant working with me, has a face-to -face encounter with this patient.
[2016-11-13] MEDS: *HR* Warfarin 4 MG TABLET PO SCH (17:05)
[2016-11-13] MEDS: *HR* LORazepam 0.5 MG TABLET PO SCH (21:08)
[2016-11-14 05:41] LABS: INR 1.7; Prothrombin Time 18.7 Seconds (9.4-12.1)
[2016-11-14] MEDS: Ibuprofen 800 MG TABLET PO PRN (06:00)
[2016-11-14 07:28] VITALS: BP 136/67
[2016-11-14] MEDS: *HR* GlipiZIDE XL (24 HR) 2.5 MG TABLET PO SCH (08:26)
[2016-11-14] MEDS: Furosemide 40 MG TABLET PO SCH (08:26)
[2016-11-14] MEDS: Bumetanide 1 MG TABLET PO SCH (08:26)
[2016-11-14] MEDS: Insulin LISPRO 300 UNITS/3 ML VIAL SQ SCH (08:26)
[2016-11-14] MEDS: Metoprolol XL (24 HR) Succ 50 MG TAB.ER.24H PO SCH (08:26)
[2016-11-14] MEDS: (Ca/D3/Mag#11/Zinc/Cop/Mang/Bor [Caltrate 600+D Plus PO SCH (08:27)
[2016-11-14] MEDS: POTASSIUM CITRATE 5 MEQ PO SCH (08:27)
== END 2016-11-14 11:50 | disposition home health service (06) | DRG 561 ==
LOC: INPGRE 13:09
PROVIDERS: ADMIT Internal Medicine; ATTEND Internal Medicine